=== PATIENT | male | born 1980 | race Caucasian/White ===

== ENCOUNTER 2021-08-31 12:33 | Emergency (ER) | payer OTHER, MEDICAID, SELFPAY ==
[2021-08-31 12:35] VITALS: BP 127/92; PULSE 92; RESP 18; TEMP 35.7; O2SAT 99; BMI 41.3
--- NOTE | 2021-08-31 12:51 | DI.US.S_ITS ---
PROCEDURE: US PERIPH VENOUS LOW EXTREM RT INDICATIONS: PAIN, EDEMA TECHNIQUE: Real-time imaging, as well as color and pulse Doppler interrogation, were performed of the lower extremity deep veins from the inguinal ligament to the popliteal fossa. COMPARISON: None. FINDINGS: The common femoral, femoral and popliteal veins are normally compressible, and free of intraluminal thrombus. Color and pulse Doppler demonstrate normal phasic intraluminal flow. There is normal augmentation response to distal compression maneuver. IMPRESSION: No evidence of deep vein thrombosis involving the right lower extremity. Dictated by: Khadra Maciel MD, PhD on 08/31/2021 at 12:40 Approved by: Khadra Maciel MD, PhD on 08/31/2021 at 12:40
[2021-08-31 13:00] VITALS: PULSE 90
[2021-08-31 13:16] LABS: Add Manual Diff / Slide Review NO; Basophils Absolute Auto 0 /uL (0-100); Basophils Percent Auto 0.3 % (0-2); Eosinophils Absolute Auto 100 /uL (0-450); Eosinophils Percent Auto 1.4 % (2-4); Hematocrit 38.4 % (41-53); Hemoglobin 12.9 g/dL (13.5-17.5); Lymphocytes Absolute Auto 700 /uL (1100-4500); Mean Corpuscular HGB Conc 33.5 % (30-36); Mean Corpuscular Hemoglobin 26.3 PG (26-34); Mean Corpuscular Volume 78.5 fL (80-100); Monocytes Absolute Auto 400 /uL (0-900); Monocytes Percent Auto 7.5 % (3-14); Neutrophils Absolute Auto 3800 /uL (1500-7000); Neutrophils Percent Auto 76.8 % (50-75); Platelet Count 260 X10^3/uL (150-400); Red Blood Cell Count 4.89 X10^6/uL (4.5-5.9); Red Cell Distribution Width 14.8 % (11.6-14.8); White Blood Cell Count 4.9 X10^3/uL (4.5-11.0)
[2021-08-31 13:25] LABS: Alanine Aminotransferase 66 IU/L (<50); Albumin 4.8 g/dL (3.5-5.0); Albumin Globulin Ratio 1.2 (1.0-2.8); Alkaline Phosphatase 105 U/L (38-126); Aspartate Aminotransferase 44 IU/L (17-59); BUN Creatinine Ratio 24.4 (6-22); Bilirubin Total 0.6 mg/dL (0.2-1.3); Blood Urea Nitrogen 20 mg/dL (9-20); Calcium 9.7 mg/dL (8.4-10.2); Carbon Dioxide 26 mmol/L (22-32); Chloride 104 mmol/L (98-107); Estimated Glomerular Filt Rate > 60.0 mL/min (>60); Globulin 3.9 g/dL (1.7-4.1); Glucose 119 mg/dL (70-100); HEMOLYSIS < 15 (0-50); Potassium 4.3 mmol/L (3.4-5.1); Sodium 140 mmol/L (137-145); Total Protein 8.7 g/dL (6.3-8.2)
--- NOTE | 2021-08-31 14:13 | ED_ITS ---
HPI - Extremity Problem General Chief complaint: Extremity Problem,Nontraumatic Stated complaint: Rt Leg Swelling, Neuropathy Time Seen by Provider: 08/31/21 13:00 Source: patient Mode of arrival: Ambulatory History of Present Illness HPI Narrative: 40-year-old male daily smoker with history of chronic leg pain from fracture years ago presents with pain and some tingling in his leg which has been present for many months. He admits that he has not been taking his medications and symptoms may have started after he stopped taking his Lyrica. He denies fever chills. Denies any new redness or swelling and states that it has been swollen ever since his injury. He denies any chest pain or shortness of breath. He states that his pain is worse when he moves and walks and improves with rest. He is otherwise well and free of complaint Related Data Home Medications Medication Instructions Recorded Confirmed buprenorphine 8 mg-naloxone 2 mg 1 tab SUBLINGUAL TID 08/31/21 08/31/21 sublingual tablet Previous Rx's Medication Instructions Recorded pregabalin 50 mg capsule (Lyrica) 50 mg PO TID #30 cap 08/31/21 Allergies Allergy/AdvReac Type Severity Reaction Status Date / Time No Known Drug Allergies Allergy Verified 08/31/21 12:48 Review of Systems Review of Systems Narrative: GENERAL: Denies chills, fatigue, malaise, fever, sweats. HEENT: Denies sinus pain, ear pain, sore throat, difficulty swallowing, dizziness. RESPIRATORY: Denies dyspnea, cough, wheezing, hemoptysis, sputum. CARDIOVASCULAR: Denies chest pain, palpitations, orthopnea, edema, GASTROINTESTINAL: Denies nausea, vomiting, abdominal pain, diarrhea, constipation, melena. : Denies dysuria, frequency, incontinence, hematuria, urinary retention. MUSCULOSKELETAL: denies weakness, joint pain, or bony pain SKIN: Denies rash, skin lesions, or other NEUROLOGIC: See HPI PSYCHIATRIC: No concerning psychosocial issues. 12 point review of systems is negative except for those stated above Patient History Social History Smoking Status: Current every day smoker Smoking Status: Current every day smoker tobacco type: cigarettes alcohol intake frequency: other Substance Use Type: former substance user Exam Narrative Exam Narrative: GEN: AOx3 and in mild distress EYES: Pupils are equal, round, and reactive to light and accommodation. Extraoccular muscles are intact bilaterally. There is no subconjunctival hemorrhage or exudate. CHEST: Lungs are clear to auscultation bilaterally and free of wheezes, rales, or rhonchi. Heart rate is regular rhythm, there are no murmurs, clicks, rubs, or gallops. There is no chest wall tenderness. ABD: Abdomen is soft and nontender. There is no guarding or rebound. Bowel sounds are normal in all 4 quadrants. There is no mass or organomegaly. EXT: Right leg with swelling but no tenderness in thigh and lower leg, compartments are soft, no erythema or warmth. No numbness, tingling or weakness. No bony tenderness for Full painless ROM of all extremities with no loss of sensation or strength. SKIN: Warm, pink, and dry. No erythema or rash Initial Vital Signs Initial Vital Signs: Vital Signs Temperature 96.2 F L 08/31/21 12:35 Pulse Rate 92 H 08/31/21 12:35 Respiratory Rate 18 08/31/21 12:35 Blood Pressure 127/92 H 08/31/21 12:35 Pulse Oximetry 99 08/31/21 12:35 Course Orders Ordered: ED Orders 08/31/21 12:51 US periph venous low extrem rt Stat 08/31/21 13:05 CBC Auto Diff [Complete Blood Count AUTO DIFF] Stat Comprehensive Metabolic Panel Stat Vital Signs Vital signs: Vital Signs - 8 hr 08/31/21 12:35 08/31/21 13:00 Temperature 96.2 F L Pulse Rate 92 H Pulse Rate [Left Dorsalis Pedis] 90 Respiratory Rate 18 Blood Pressure 127/92 H Pulse Oximetry 99 MDM - Extremity (Nontraumatic) Lab Data Result diagrams: 08/31/21 13:05 08/31/21 13:05 Labs: Lab Results 08/31/21 08/31/21 Range/Units 13:05 13:05 WBC 4.9 (4.5-11.0) X10^3/uL RBC 4.89 (4.5-5.9) X10^6/uL Hgb 12.9 L (13.5-17.5) g/dL Hct 38.4 L (41-53) % MCV 78.5 L (80-100) fL MCH 26.3 (26-34) PG MCHC 33.5 (30-36) % RDW 14.8 (11.6-14.8) % Plt Count 260 (150-400) X10^3/uL Neut % (Auto) 76.8 H (50-75) % Lymph % (Auto) 14.0 L (25-40) % Carroll % (Auto) 7.5 (3-14) % Eos % (Auto) 1.4 L (2-4) % Baso % (Auto) 0.3 (0-2) % Neut # (Auto) 3800 (7261-9005) /uL Lymph # (Auto) 700 L (3128-1442) /uL Carroll # (Auto) 400 (0-900) /uL Eos # (Auto) 100 (0-450) /uL Baso # (Auto) 0 (0-100) /uL Sodium 140 (137-145) mmol/L Potassium 4.3 (3.4-5.1) mmol/L Chloride 104 (98-107) mmol/L Carbon Dioxide 26 (22-32) mmol/L BUN 20 (9-20) mg/dL Creatinine 0.82 (0.66-1.25) mg/dL Estimated GFR > 60.0 (>60) mL/min BUN/Creatinine Ratio 24.4 H (6-22) Glucose 119 H (70-100) mg/dL Calcium 9.7 (8.4-10.2) mg/dL Total Bilirubin 0.6 (0.2-1.3) mg/dL AST 44 (17-59) IU/L ALT 66 H (<50) IU/L Alkaline Phosphatase 105 (38-126) U/L Total Protein 8.7 H (6.3-8.2) g/dL Albumin 4.8 (3.5-5.0) g/dL Globulin 3.9 (1.7-4.1) g/dL Albumin/Globulin Ratio 1.2 (1.0-2.8) Imaging Data US - DVT: Radiologist's Impression: Close Vascular Ultrasound (Signed) Khadra Maciel - 08/31/21 Launch?[address] [address] Ultrasound Report Signed Patient: Jaret Waller MR#: [id number] : 1980 Acct:[id number] Age/Sex: 40 / M Date of Service: 08/31/21 Loc: ED Accession Number: [id number] ?? Procedure: US periph venous low extrem rt Ordering Provider: Thaddeus Zabala D.O. PROCEDURE:? US PERIPH VENOUS LOW EXTREM RT ? INDICATIONS:? PAIN, EDEMA ? TECHNIQUE:? Real-time imaging, as well as color and pulse Doppler interrogation, were performed of the lower extremity deep veins from the inguinal ligament to the popliteal fossa.? ? COMPARISON:? None. ? FINDINGS:? The common femoral, femoral and popliteal veins are normally compressible, and free of intraluminal thrombus.? Color and pulse Doppler demonstrate normal phasic intraluminal flow.? There is normal augmentation response to distal compression maneuver. ? ? IMPRESSION:? No evidence of deep vein thrombosis involving the right lower extremity. ? ? Dictated by: Khadra Maciel MD, PhD on 08/31/2021 at 12:40 ? ? Approved by: Khadra Maciel MD, PhD on 08/31/2021 at 12:40 ? MDM Narrative Medical decision making narrative: Patient with chronic pain, largely since stopping his Lyrica. No redness, warmth or new swelling, though cellulitis and DVT are considered these are thought unlikely given his history and exam as well as negative ultrasound. Reassuring history and physical exam as well as ultrasound findings. Patient given return precautions and has had his questions answered to his apparent satisfaction Discharge Plan Departure Patient Disposition: Home Clinical Impression: Chronic pain of right lower extremity Instructions: DI for Leg Pain Activity Restrictions/Additional Instructions: *You have been diagnosed with [acute on chronic right lower extremity pain. As we discussed your history of physical exam are very reassuring. Ultrasound is helpful in demonstrates no deep vein thrombosis *What to do: *Please continue to take your regular medications as directed. [ ] New medication prescriptions sent to your pharmacy: [ ] [x ] New medication written as a paper prescription [ ] No new medications given *Please follow up with your primary care provider in 2-3 days, call for an appointment. Let them know you were seen in the Emergency Department and that we ask that you be seen in follow up. We will electronically transmit a record of today's note if your PCP is in our system *If you do not have a primary care provider please contact the [facility] Resource line at [phone]. They will ask some questions about your medical history and help get you set up with a doctor in the community. *Return to Emergency Department if you should have any new, worsening or concerning symptoms, such as [fever greater than 101 F, shaking chills, worsening pain, persistent vomiting or other bothersome symptoms] Prescriptions: New pregabalin [Lyrica] 50 mg capsule 50 mg PO TID Qty: 30 0RF No Action buprenorphine-naloxone 8-2 mg tablet, sublingual 1 tab SUBLINGUAL TID 0RF Label Comments: DISSOLVE 1 TABLET (8 MG) SUBLINGUALLY THREE TIMES DAILY 14 DAYS DUE 08/22
[2021-08-31 14:32] VITALS: BP 136/88; PULSE 84; RESP 16; O2SAT 99
== END 2021-08-31 14:32 | disposition home or self-care (01) ==
PROVIDERS: Emergency Provider Emergency Medicine
DX: G89.29 Other chronic pain (principal); M79.604 Pain in right leg
CPT/HCPCS: 36415; 80053; 85025; 93971; 99283; 99284

== ENCOUNTER 2022-05-28 20:53 | Emergency (ER) | payer OTHER, MEDICAID, SELFPAY ==
--- NOTE | 2022-05-28 21:02 | DI.RAD.S_ITS ---
PROCEDURE: XR FOOT RT MIN 3V INDICATIONS: laceration, foreign body? TECHNIQUE: 3 views of the foot were acquired. COMPARISON: None. FINDINGS: Bones: No fractures or dislocations. Osteoarthritic changes are noted throughout right foot. Well-defined dorsal calcaneal enthesophyte is seen. No suspicious bony lesions. Soft tissues: No tibiotalar joint effusion. Achilles tendon appears normal. IMPRESSION: No acute right foot fracture or dislocation. No radiopaque foreign body is seen. Right foot joint osteoarthritis. Dictated by: Benny More M.D. on 05/28/2022 at 21:50 Approved by: Benny More M.D. on 05/28/2022 at 21:50
[2022-05-28 21:11] VITALS: BP 96/61; PULSE 114; RESP 20; TEMP 36.6; O2SAT 94; BMI 36.5
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
--- NOTE | 2022-05-28 23:11 | PC.NURSE ---
2305 MD at the bedside numbing wound. Patient right foot placed in warm water with betadine to clean.
[2022-05-28] MEDS: HYDROCODONE/ACET 5/325 PREPACK 1 BOTTLE MISC (23:24)
[2022-05-28 23:55] VITALS: BP 110/69; PULSE 89; RESP 20; O2SAT 99
== END 2022-05-28 23:55 | disposition home or self-care (01) ==
PROVIDERS: Emergency Provider Emergency Medicine
DX: S91.311A Laceration without foreign body, right foot, initial encounter (principal); W25.XXXA Contact with sharp glass, initial encounter
CPT/HCPCS: 12002; 73630; 99283

== ENCOUNTER 2022-06-12 12:01 | Emergency (ER) | payer OTHER, MEDICAID, SELFPAY ==
[2022-06-12 12:04] VITALS: BP 165/97; PULSE 97; RESP 16; TEMP 36.9; O2SAT 96; BMI 34.9
[2022-06-12 15:21] VITALS: BP 142/93; PULSE 91; RESP 20; O2SAT 97
--- NOTE | 2022-06-12 17:07 | ED.RECABL ---
HPI - Recheck/Abnormal Lab/Rx General Chief Complaint: Recheck/Abnormal Lab/Rx Stated Complaint: Glass in foot Time Seen by Provider: 06/12/22 16:49 Mode of arrival: EMS History of Present Illness HPI narrative: Gentleman with chronic opioid dependence on buprenorphine comes to the ER today 1 week after initiating antibiotic therapy for a wound on the sole of his foot. Stepped on a piece of glass through a rubber soled shoe and it penetrated into his heel. He has been on doxycycline now for a week with minimal improvement. He says he feels vaguely sick and nauseated but no vomiting and no fever. He has quite a bit of pain in the sole of his foot. Related Data Home Medications Medication Instructions Recorded Confirmed buprenorphine 8 mg-naloxone 2 mg 1 tab sublingual TID 08/31/21 08/31/21 sublingual tablet Previous Rx's Medication Instructions Recorded pregabalin 50 mg capsule (Lyrica) 50 mg PO TID #30 caps 08/31/21 doxycycline hyclate 100 mg tablet 100 mg PO BID #20 tabs 05/28/22 ciprofloxacin HCl 500 mg tablet 500 mg PO BID #20 tabs 06/12/22 (Cipro) doxycycline hyclate 100 mg capsule 100 mg PO BID #20 caps 06/12/22 Allergies Allergy/AdvReac Type Severity Reaction Status Date / Time No Known Drug Allergies Allergy Verified 08/31/21 12:48 Review of Systems Review of Systems Narrative: Complete review of systems is negative other than as noted above. Patient History Social History Smoking Status: Current every day smoker Smoking Status: Current every day smoker tobacco type: cigarettes alcohol intake frequency: other Substance Use Type: former substance user Exam Narrative Exam Narrative: GENERAL: Sleeping but easily awakened to voice. HEAD: Atraumatic. Normocephalic. EYES: Sclera are clear without icterus. Extraocular movements are full. ENT: No rhinorrhea. NECK: Supple. Full range of motion. CARDIOVASCULAR: Normal rate and rhythm without murmur gallop or rub. RESPIRATORY: Clear to auscultation. Breath sounds equal bilaterally. No wheezes, rales, or rhonchi. GASTROINTESTINAL: Abdomen soft, non-tender, nondistended. EXTREMITIES: No edema, full range of motion. No obvious trauma. BACK: Normal inspection, no CVA tenderness. NEURO: Nonfocal examination, normal speech. SKIN: The sole of the heel has a transverse oblique laceration that is open and healing by secondary intent. It is tender and mildly red. It goes into the meat of the foot. There is no purulence no vesicles. PSYCH: Normally oriented. Normal range of affect. Appropriate behavior Initial Vital Signs Initial Vital Signs: Vital Signs Temperature 98.4 F 06/12/22 12:04 Pulse Rate 97 H 06/12/22 12:04 Respiratory Rate 16 06/12/22 12:04 Blood Pressure 165/97 H 06/12/22 12:04 Pulse Oximetry 96 06/12/22 12:04 Oxygen Delivery Method 06/12/22 12:04 Course Vital Signs Vital signs: Vital Signs - 8 hr 06/12/22 12:04 06/12/22 15:21 Temperature 98.4 F Pulse Rate 97 H 91 H Respiratory Rate 16 20 Blood Pressure 165/97 H 142/93 H Pulse Oximetry 96 97 Oxygen Delivery Method Room Air Room Air MDM - Recheck/Abnormal Lab/Rx MDM Narrative Medical decision making narrative: I think Pseudomonas is likely here given the penetration injury to the sole of the foot through a rubber soled shoe. Will add on ciprofloxacin for Pseudomonas coverage. Will continue doxycycline for another week. Recommend close outpatient follow-up within a week if not improving. Follow-up right away for worsening symptoms. For pain management I recommend Tylenol 1000 mg taken together with ibuprofen 600 mg every 6 hours combined with 4 mg of buprenorphine. Discharge Plan Departure Patient Disposition: Home Clinical Impression: Encounter for wound re-check Activity Restrictions/Additional Instructions: I am worried that you may have a Pseudomonas infection in her foot. I have added on an additional antibiotic that will have better coverage for that. Ciprofloxacin 500 mg twice daily. Also continue to take the doxycycline for an additional 10 days. Follow-up with your doctor in about 5 days to reassess. For pain management I recommend ibuprofen and Tylenol. Prescriptions: New ciprofloxacin HCl [Cipro] 500 mg tablet 500 mg PO BID Qty: 20 0RF doxycycline hyclate 100 mg capsule 100 mg PO BID Qty: 20 0RF No Action buprenorphine-naloxone 8-2 mg tablet, sublingual 1 tab SUBLINGUAL TID Label Comments: DISSOLVE 1 TABLET (8 MG) SUBLINGUALLY THREE TIMES DAILY 14 DAYS DUE 08/22 pregabalin [Lyrica] 50 mg capsule 50 mg PO TID Qty: 30 0RF doxycycline hyclate 100 mg tablet 100 mg PO BID Qty: 20 0RF
[2022-06-12 17:14] VITALS: BP 179/118; PULSE 96; RESP 18; O2SAT 97
== END 2022-06-12 17:15 | disposition home or self-care (01) ==
PROVIDERS: Emergency Provider Family Medicine Addiction Medicine
DX: M79.671 Pain in right foot (principal); Z51.89 Encounter for other specified aftercare
CPT/HCPCS: 99281

== ENCOUNTER 2022-07-09 20:41 | Emergency (ER) | payer OTHER, MEDICAID, SELFPAY ==
[2022-07-09 20:49] VITALS: BP 166/103; PULSE 107; RESP 20; TEMP 36.9; O2SAT 97; BMI 34.9
--- NOTE | 2022-07-09 20:56 | DI.RAD.S_ITS ---
PROCEDURE: XR FOOT RT 2V INDICATIONS: stepped on glass TECHNIQUE: 3 views of the foot were acquired. COMPARISON: [facility], CR, XR FOOT RT MIN 3V, 05/28/2022, 21:03. FINDINGS: Bones: No fractures or dislocations. There are 2 lucent lesions redemonstrated within the calcaneus. Findings are nonspecific but likely represent lipomas given their locations. There is a small dorsal calcaneal enthesophyte again noted. Soft tissues: No radiopaque foreign bodies identified. There is a small calcification anterior to the tibiotalar joint measuring up to 0.4 cm suggestive of a joint body. IMPRESSION: 1. No radiopaque foreign body identified. Dictated by: Ketan Gómez M.D. on 07/09/2022 at 22:19 Approved by: Ketan Gómez M.D. on 07/09/2022 at 22:21
--- NOTE | 2022-07-09 20:56 | DI.RAD.S_ITS ---
P or ROCEDURE: XR FOOT LT 2V INDICATIONS: stepped on glass TECHNIQUE: 3 views of the foot were acquired. COMPARISON: [facility], CR, XR FOOT RT MIN 3V, 05/28/2022, 21:03. FINDINGS: Bones: No fractures or dislocations. No suspicious bony lesions. Soft tissues: No radiopaque foreign body identified. IMPRESSION: 1. No radiopaque foreign body identified. Dictated by: Ketan Gómez M.D. on 07/09/2022 at 22:22 Approved by: Ketan Gómez M.D. on 07/09/2022 at 22:22
[2022-07-09] MEDS: TET,DIPH,PERTUSS(ACELL),VAC/PF 0.5 ML SYRINGE IM (21:13)
--- NOTE | 2022-07-09 21:16 | ED.LOWEXIN ---
HPI - Extremity Injury (Lower) General Chief Complaint: Extremity Injury, Lower Stated Complaint: Glass in feet Time Seen by Provider: 07/09/22 21:01 Source: patient Mode of arrival: Wheelchair History of Present Illness HPI Narrative: 41-year-old male daily smoker presents feeling like he may have a piece of glass in the bottom of his left foot. He states that he had dropped a light bulb in his house and was walking barefoot and feels like he was poked in the bottom of his foot. His tetanus is current and he was seen earlier in the year when he stepped on a piece of glass in his right heel. He is otherwise well and free of complaint denies any other injury. He has no numbness, tingling or weakness Related Data Home Medications Medication Instructions Recorded Confirmed buprenorphine 8 mg-naloxone 2 mg 1 tab sublingual TID 08/31/21 08/31/21 sublingual tablet Previous Rx's Medication Instructions Recorded pregabalin 50 mg capsule (Lyrica) 50 mg PO TID #30 caps 08/31/21 doxycycline hyclate 100 mg tablet 100 mg PO BID #20 tabs 05/28/22 ciprofloxacin HCl 500 mg tablet 500 mg PO BID #20 tabs 06/12/22 (Cipro) doxycycline hyclate 100 mg capsule 100 mg PO BID #20 caps 06/12/22 doxycycline hyclate 100 mg tablet 100 mg PO BID #20 tabs 07/09/22 Allergies Allergy/AdvReac Type Severity Reaction Status Date / Time No Known Drug Allergies Allergy Verified 07/09/22 20:49 Review of Systems Review of Systems Narrative: GENERAL: Denies chills, fatigue, malaise, fever, sweats. HEENT: Denies sinus pain, ear pain, sore throat, difficulty swallowing, dizziness. RESPIRATORY: Denies dyspnea, cough, wheezing, hemoptysis, sputum. CARDIOVASCULAR: Denies chest pain, palpitations, orthopnea, edema, GASTROINTESTINAL: Denies nausea, vomiting, abdominal pain, diarrhea, constipation, melena. : Denies dysuria, frequency, incontinence, hematuria, urinary retention. MUSCULOSKELETAL: see HPI SKIN: see HPI NEUROLOGIC: Denies weakness, headache, numbness, change in speech, confusion, seizures, incoordination. PSYCHIATRIC: No concerning psychosocial issues. 12 point review of systems is negative except for those stated above Patient History Social History Smoking Status: Current every day smoker Smoking Status: Current every day smoker tobacco type: cigarettes alcohol intake frequency: other Substance Use Type: former substance user Exam Narrative Exam Narrative: GENERAL: [41] year old patient appears stated age. Well-developed patient, in mild distress. HEAD: Atraumatic. Normocephalic. EYES: Pupils equal round and reactive. Extraocular motions intact. No scleral icterus. No injection or drainage. ENT: Nose without bleeding, purulent drainage. Throat without erythema, tonsillar hypertrophy or exudate. Airway patent. NECK: Trachea midline. Non tender CARDIOVASCULAR: Regular rate and rhythm without murmurs, gallops, or rubs. RESPIRATORY: Clear to auscultation. Breath sounds equal bilaterally. No wheezes, rales, or rhonchi. GASTROINTESTINAL: Abdomen soft, non-tender, nondistended. EXTREMITIES: Plantar surface of left foot dried and cracking, no evidence of bleeding, redness, warmth or swelling, no foreign bodies noted. Plantar surface of right foot similar with dried cracking skin, prior deep heel laceration is dry, slightly dehisced, no drainage no palpable foreign body BACK: Nontender without deformity or crepitance. No flank tenderness. NEURO: AOx3. SKIN: No rash or erythema of visible areas Initial Vital Signs Initial Vital Signs: Vital Signs Temperature 98.4 F 07/09/22 20:49 Pulse Rate 107 H 07/09/22 20:49 Respiratory Rate 20 07/09/22 20:49 Blood Pressure 166/103 H 07/09/22 20:49 Pulse Oximetry 97 07/09/22 20:49 Oxygen Delivery Method 07/09/22 20:49 Course Orders Ordered: ED Orders 07/09/22 20:56 XR foot LT min 3V Stat XR foot RT min 3V Stat Discontinued Medications Diphtheria/Tetanus/Acell Pertussis (Tet,Diph,Pertuss(Acell),Vac/Pf 0.5 Ml Syringe) 0.5 ml IM .ONCE ONE Stop: 07/09/22 20:57 Last Admin: 07/09/22 21:13 Dose: 0.5 ml Documented By: ADRY Vital Signs Vital signs: Vital Signs - 8 hr 07/09/22 20:49 07/09/22 22:43 Temperature 98.4 F Pulse Rate 107 H 108 H Respiratory Rate 20 18 Blood Pressure 166/103 H Pulse Oximetry 97 96 Oxygen Delivery Method Room Air Room Air Discharge Plan Departure Patient Disposition: Home Clinical Impression: Foreign body foot/toe Instructions: Soft Tissue Pain (Alternative Therapy) Activity Restrictions/Additional Instructions: *You have been diagnosed with [bilateral foot pain, possible foreign bodies, thankfully not noted on imaging or exam] *What to do: *Please continue to take your regular medications as directed. [ x] New medication prescriptions sent to your pharmacy: [ [facility]] [ ] New medication written as a paper prescription [ ] No new medications given *Please follow up with your Podiatry in 2-3 days, call for an appointment. Let them know you were seen in the Emergency Department and that we ask that you be seen in follow up. We will electronically transmit a record of today's note * as we discussed please consider soaking your feet in warm water with Epson salts *Return to Emergency Department if you should have any new, worsening or concerning symptoms Prescriptions: New doxycycline hyclate 100 mg tablet 100 mg PO BID Qty: 20 0RF No Action buprenorphine-naloxone 8-2 mg tablet, sublingual 1 tab SUBLINGUAL TID Label Comments: DISSOLVE 1 TABLET (8 MG) SUBLINGUALLY THREE TIMES DAILY 14 DAYS DUE 08/22 pregabalin [Lyrica] 50 mg capsule 50 mg PO TID Qty: 30 0RF doxycycline hyclate 100 mg tablet 100 mg PO BID Qty: 20 0RF ciprofloxacin HCl [Cipro] 500 mg tablet 500 mg PO BID Qty: 20 0RF doxycycline hyclate 100 mg capsule 100 mg PO BID Qty: 20 0RF Referrals: Colleen Hardy DPM [Physician] - Anais Monterroso PA-C [Primary Care Provider] - Visit Report Forms: Patient Portal/API
[2022-07-09 22:43] VITALS: PULSE 108; RESP 18; O2SAT 96
== END 2022-07-09 22:44 | disposition home or self-care (01) ==
PROVIDERS: Emergency Provider Emergency Medicine; PCP Physician Assistant Medical
DX: S90.852A Superficial foreign body, left foot, initial encounter (principal); Z23 Encounter for immunization
CPT/HCPCS: 73630; 90471; 99283; 90715